=== PATIENT | male | born 1990 | race African-American/Black ===

== ENCOUNTER 2020-12-19 23:51 | Emergency (ER) | payer OTHER ==
[~2020-12-19 23:51] MED LIST: BENTYL10 MG PO; Zofran PO
[2020-12-20 00:18] LABS: BASOPHIL 0.7 % (0-2); EOSINOPHIL 1.6 % (0-5); HCT 46.8 % (42.0-52.0); HGB 15.4 g/dl (13.2-18.0); LYMPHOCYTE 27.3 % (15-48); MCH 29.5 pg (25.0-31.0); MCHC 32.9 g/dL (32.0-36.0); MCV 89.7 fL (78.0-100.0); MONOCYTE 8.6 % (0-12); MPV 10.1 fL (6.0-9.5); NEUTROPHIL 60.9 % (41-80); NRBC 0; PLT 300 K/uL (150-400); RBC 5.22 M/uL (4.70-6.00); RDW 12.1 % (11.5-14.0); WBC 11.3 K/uL (4.0-10.5)
[2020-12-20 00:41] LABS: ALBUMIN 3.4 g/dL (3.4-5.0); BILIRUBIN - TOTAL 0.2 mg/dL (0.2-1.0); BUN/CREAT RATIO (CALC) 9.9 RATIO; CREATININE 1.01 mg/dL (0.67-1.17); POTASSIUM 3.4 mmol/L (3.5-5.1); TOTAL PROTEIN 7.4 g/dL (6.4-8.2)
[2020-12-20 00:46] LABS: AMPHETAMINES NEGATIVE (NEGATIVE); BARBITURATES NEGATIVE (NEGATIVE); ECSTASY (MDMA) NEGATIVE (NEGATIVE); MARIJUANA (THC) POSITIVE (NEGATIVE); METHADONE NEGATIVE (NEGATIVE); OPIATES NEGATIVE (NEGATIVE); OXYCODONE NEGATIVE (NEGATIVE)
== END 2020-12-20 01:05 | disposition home or self-care (01) ==
LOC: FER 23:51
PROVIDERS: Emergency Medicine
DX: F10.129 Alcohol abuse with intoxication, unspecified (principal); F17.200 Nicotine dependence, unspecified, uncomplicated; Y90.5 Blood alcohol level of 100-119 mg/100 ml
CPT/HCPCS: 36415; 80053; 80305; 85025; 99285; G0480; J7120

== ENCOUNTER 2021-11-09 11:26 | Emergency (ER) | payer SELFPAY ==
[2021-11-09 16:02] LABS: BASOPHIL 0.6 % (0-2); EOSINOPHIL 2.4 % (0-5); HCT 55.2 % (42.0-52.0); HGB 17.7 g/dl (13.2-18.0); MCH 29.4 pg (25.0-31.0); MCHC 32.1 g/dL (32.0-36.0); MCV 91.7 fL (78.0-100.0); MONOCYTE 10.4 % (0-12); MPV 10.3 fL (6.0-9.5); NEUTROPHIL 66.3 % (41-80); NRBC 0; PLT 327 K/uL (150-400); RBC 6.02 M/uL (4.70-6.00); RDW 12.3 % (11.5-14.0); WBC 12.3 K/uL (4.0-10.5)
[2021-11-09 16:21] LABS: ALBUMIN 4.2 g/dL (3.4-5.0); BILIRUBIN - TOTAL 0.5 mg/dL (0.2-1.0); BUN/CREAT RATIO (CALC) 8.3 RATIO; CREATININE 1.2 mg/dL (0.67-1.17); GLOBULIN (CALCULATION) 4.4 g/dL; POTASSIUM 4.6 mmol/L (3.5-5.1); TOTAL PROTEIN 8.6 g/dL (6.4-8.2)
[2021-11-09 17:22] LABS: CORONAVIRUS 2019 SARS-COV-2 NEGATIVE (NEGATIVE); INFLUENZA A NAA NEGATIVE (NEGATIVE)
== END 2021-11-09 18:30 | disposition left against medical advice (07) ==
LOC: FER 11:26
PROVIDERS: Internal Medicine; Physician Assistant
DX: R10.9 Unspecified abdominal pain (principal); R11.2 Nausea with vomiting, unspecified; D72.829 Elevated white blood cell count, unspecified; F17.210 Nicotine dependence, cigarettes, uncomplicated; Z20.822 Contact with and (suspected) exposure to COVID-19; Z53.8 Procedure and treatment not carried out for other reasons
CPT/HCPCS: 36415; 80053; 85025; 99283; U0002

== ENCOUNTER 2022-03-28 18:01 | Emergency (ER) | payer MEDICAID ==
[2022-03-28] MEDS ORDERED: NORCO 5-325 TA1 EACH PO (21:10)
[2022-03-28] MEDS ORDERED: NAPROXEN500 MG PO (21:10)
== END 2022-03-28 21:25 | disposition home or self-care (01) ==
LOC: FER 18:01
DX: S62.111A Displaced fracture of triquetrum [cuneiform] bone, right wrist, initial encounter for closed fracture (principal); Z28.310 Unvaccinated for COVID-19; V86.99XA Unspecified occupant of other special all-terrain or other off-road motor vehicle injured in nontraffic accident, initial encounter
CPT/HCPCS: 73100

== ENCOUNTER 2022-05-16 13:39 | Emergency (ER) | payer OTHER ==
[~2022-05-16 13:39] MED LIST changes: +NAPROXEN500 MG PO; +NORCO 5-325 TA1 EACH PO
[2022-05-16] MEDS ORDERED: CYCLOBENZAPRINE10 MG PO (16:01)
== END 2022-05-16 16:15 | disposition home or self-care (01) ==
LOC: FER 13:39
DX: S39.012A Strain of muscle, fascia and tendon of lower back, initial encounter (principal); Z28.310 Unvaccinated for COVID-19; X50.9XXA Other and unspecified overexertion or strenuous movements or postures, initial encounter; Y93.89 Activity, other specified; Y92.89 Other specified places as the place of occurrence of the external cause; Y99.0 Civilian activity done for income or pay
CPT/HCPCS: 72110